=== PATIENT | male | born 1965 | race Asian ===

== ENCOUNTER 2024-01-30 14:29 | Outpatient (CLI) | payer MEDICAID | END 2024-01-30 23:59 | disposition home or self-care (01) | LOC: LAB 14:29 | PROVIDERS: ATTEND Internal Medicine | DX: C20 Malignant neoplasm of rectum (principal) | CPT/HCPCS: 36415; 82378 ==

== ENCOUNTER 2024-03-24 11:12 | Outpatient (CLI) | payer MEDICAID ==
[2024-03-24 11:44] LABS: BASOPHILS % (AUTO) 0.3 % (0-1); EOSINOPHILS % (AUTO) 0.3 % (0-6); HEMATOCRIT 42.7 % (42.0-52.0); HEMOGLOBIN 14.5 g/dl (14.0-17.9); LYMPHOCYTES # (AUTO) 0.2 X10'3 (1.1-4.8); MEAN CORPUSCULAR HEMOGLOBIN 33.9 PG (27.0-31.0); MEAN CORPUSCULAR HGB CONC 33.9 g/dL (33.0-36.5); MEAN PLATELET VOLUME 6.3 FL (7.4-10.4); MONOCYTES # (AUTO) 0.4 X10'3 (0-0.9); MONOCYTES % (AUTO) 9.3 % (2-12); NEUTROPHILS # (AUTO) 3.8 X10'3 (1.8-7.7); NEUTROPHILS % (AUTO) 86.1 % (42-75); PLATELET COUNT 265 X10'3 (140-440); RED BLOOD COUNT 4.27 X10'6 (4.70-6.10); RED CELL DISTRIBUTION WIDTH 16.2 % (11.5-14.5); WHITE BLOOD COUNT 4.4 X10'3 (4.5-11.0)
[2024-03-24 11:59] LABS: ALANINE AMINOTRANSFERASE 15 U/L (12-78); ALBUMIN 4.2 G/DL (3.4-5.0); ALKALINE PHOSPHATASE 76 IU/L (46-116); ANION GAP 5 (8-16); ASPARTATE AMINO TRANSFERASE 17 U/L (10-37); BILIRUBIN,TOTAL 0.6 MG/DL (0.1-1.0); BLOOD UREA NITROGEN 10 MG/DL (7-18); BUN/CREATININE RATIO 8.9 (10.0-20.0); CHLORIDE 104 MMOL/L (99-107); CREATININE 1.12 MG/DL (0.60-1.10); GLUCOSE 109 MG/DL (70-104); MAGNESIUM 1.9 MG/DL (1.5-2.4); POTASSIUM 4.7 MMOL/L (3.5-5.1); SODIUM 140 MMOL/L (135-145); TOTAL CARBON DIOXIDE 30.6 MMOL/L (24-32); TOTAL PROTEIN 8.5 G/DL (6.4-8.2); eGFR 67 ML/MIN
== END 2024-03-24 23:59 | disposition home or self-care (01) ==
LOC: LAB 11:12
PROVIDERS: ATTEND Internal Medicine
DX: C20 Malignant neoplasm of rectum (principal)
CPT/HCPCS: 36415; 80053; 83735; 85025

== ENCOUNTER 2024-05-19 10:06 | Outpatient (CLI) | payer MEDICAID ==
[2024-05-19 10:36] LABS: BASOPHILS % (AUTO) 0.3 % (0-1); EOSINOPHILS % (AUTO) 0.9 % (0-6); HEMATOCRIT 39.3 % (42.0-52.0); HEMOGLOBIN 13.6 g/dl (14.0-17.9); LYMPHOCYTES # (AUTO) 0.3 X10'3 (1.1-4.8); LYMPHOCYTES % (AUTO) 8.7 % (21-51); MEAN CORPUSCULAR HEMOGLOBIN 35.9 PG (27.0-31.0); MEAN CORPUSCULAR HGB CONC 34.6 g/dL (33.0-36.5); MEAN CORPUSCULAR VOLUME 103.8 FL (78-98); MEAN PLATELET VOLUME 6.8 FL (7.4-10.4); MONOCYTES # (AUTO) 0.3 X10'3 (0-0.9); MONOCYTES % (AUTO) 10.9 % (2-12); NEUTROPHILS # (AUTO) 2.5 X10'3 (1.8-7.7); NEUTROPHILS % (AUTO) 79.2 % (42-75); PLATELET COUNT 313 X10'3 (140-440); RED BLOOD COUNT 3.78 X10'6 (4.70-6.10); RED CELL DISTRIBUTION WIDTH 17.6 % (11.5-14.5); WHITE BLOOD COUNT 3.2 X10'3 (4.5-11.0)
[2024-05-19 10:50] LABS: ALANINE AMINOTRANSFERASE 16 U/L (12-78); ALBUMIN 3.8 G/DL (3.4-5.0); ALBUMIN/GLOBULIN RATIO 1.1 (1.1-1.5); ASPARTATE AMINO TRANSFERASE 13 U/L (10-37); BILIRUBIN,TOTAL 0.4 MG/DL (0.1-1.0); CALCIUM 8.9 MG/DL (8.5-10.1); TOTAL CARBON DIOXIDE 28.9 MMOL/L (24-32); TOTAL PROTEIN 7.4 G/DL (6.4-8.2)
[2024-05-19 10:52] LABS: ALKALINE PHOSPHATASE 77 IU/L (46-116); ANION GAP 6 (8-16); BLOOD UREA NITROGEN 13 MG/DL (7-18); BUN/CREATININE RATIO 14.1 (10.0-20.0); CHLORIDE 105 MMOL/L (99-107); CREATININE 0.92 MG/DL (0.60-1.10); GLUCOSE 110 MG/DL (70-104); POTASSIUM 4.4 MMOL/L (3.5-5.1); SODIUM 140 MMOL/L (135-145); eGFR 84 ML/MIN
== END 2024-05-19 23:59 | disposition home or self-care (01) ==
LOC: LAB 10:06
PROVIDERS: ATTEND Internal Medicine Hematology & Oncology
DX: C20 Malignant neoplasm of rectum (principal)
CPT/HCPCS: 36415; 80053; 82378; 85025

== ENCOUNTER 2024-10-01 10:29 | Outpatient (CLI) | payer MEDICAID ==
[2024-10-01 11:36] LABS: BASOPHILS % (AUTO) 0.5 % (0-1); EOSINOPHILS # (AUTO) 0.1 X10'3 (0-0.9); HEMOGLOBIN 13.5 g/dl (14.0-17.9); LYMPHOCYTES # (AUTO) 0.3 X10'3 (1.1-4.8); MEAN CORPUSCULAR HEMOGLOBIN 33.6 PG (27.0-31.0); MEAN CORPUSCULAR HGB CONC 33.8 g/dL (33.0-36.5); MEAN CORPUSCULAR VOLUME 99.6 FL (78-98); MEAN PLATELET VOLUME 6.6 FL (7.4-10.4); MONOCYTES # (AUTO) 0.3 X10'3 (0-0.9); MONOCYTES % (AUTO) 9.1 % (2-12); NEUTROPHILS # (AUTO) 2.6 X10'3 (1.8-7.7); NEUTROPHILS % (AUTO) 78.4 % (42-75); PLATELET COUNT 287 X10'3 (140-440); RED BLOOD COUNT 4.02 X10'6 (4.70-6.10); RED CELL DISTRIBUTION WIDTH 13.7 % (11.5-14.5); WHITE BLOOD COUNT 3.4 X10'3 (4.5-11.0)
[2024-10-01 11:48] LABS: ALANINE AMINOTRANSFERASE 18 U/L (12-78); ALBUMIN 4.1 G/DL (3.4-5.0); ALBUMIN/GLOBULIN RATIO 1.2 (1.1-1.5); ALKALINE PHOSPHATASE 84 IU/L (46-116); ANION GAP 7 (8-16); ASPARTATE AMINO TRANSFERASE 17 U/L (10-37); BILIRUBIN,TOTAL 0.5 MG/DL (0.1-1.0); BLOOD UREA NITROGEN 15 MG/DL (7-18); BUN/CREATININE RATIO 13.9 (10.0-20.0); CHLORIDE 100 MMOL/L (99-107); CREATININE 1.08 MG/DL (0.60-1.10); GLUCOSE 108 MG/DL (70-104); POTASSIUM 4.3 MMOL/L (3.5-5.1); SODIUM 137 MMOL/L (135-145); TOTAL CARBON DIOXIDE 30.2 MMOL/L (24-32); TOTAL PROTEIN 7.6 G/DL (6.4-8.2); eGFR 70 ML/MIN
[2024-10-01 11:59] LABS: HEMOGLOBIN A1C 5.9 % (4.5-6.2)
[2024-10-01 12:00] LABS: CHOL/HDL RATIO 2.5 (0.00-4.99); CHOLESTEROL 128 MG/DL (0-200); FREE T4 (FREE THYROXINE) 1.02 NG/DL (0.73-1.40); HDL CHOLESTEROL 52 MG/DL (35-60); LDL CHOLESTEROL 58 MG/DL (50-100); MAGNESIUM 1.8 MG/DL (1.5-2.4); THYROID STIMULATING HORMONE 1.25 ulU/ml (0.34-4.50); TRIGLYCERIDES 73 MG/DL (20-135)
[2024-10-02 09:54] LABS: OCCULT BLOOD STOOL NEGATIVE (Neg)
[2024-10-02 11:16] LABS: FOLATE SERUM(FOLIC) 16.5 ng/mL (>3.0); HBSAG SCREEN Negative (Negative); HEP A AB, IGM Negative (Negative); HEP B CORE AB, IGM Negative (Negative); PROSTATE SPECIFIC AG, SERUM 0.5 ng/mL (0.0-4.0); PSA, FREE 0.05 ng/mL
[2024-10-04 11:38] LABS: HEPATITIS C VIRUS ANTIBODY Reactive (Non Reactive)
== END 2024-10-01 23:59 | disposition home or self-care (01) ==
LOC: RAD 10:29
PROVIDERS: ATTEND Physician Assistant
DX: C20 Malignant neoplasm of rectum (principal); Z98.890 Other specified postprocedural states
CPT/HCPCS: 36415; 80053; 80061; 80074; 82272; 82306; 82378; 82607; 82746; 83036; 83735; 84153; 84154; 84439; 84443; 85025; 86592; 87045; 87046; 87177; 87209; 87389

== ENCOUNTER 2024-10-06 14:31 | Emergency (ER) | payer MEDICAID ==
[~2024-10-06] VITALS: Ht 185.4 cm; Wt 55.6 kg
[2024-10-06 14:40] VITALS: BP 116/85; PULSE 80; TEMP 98.5; O2SAT 99
--- NOTE | 2024-10-06 14:49 | Physician Documentation ---
History of Present Illness ~ Chief Complaint: Abdominal Pain Stated Complaint: ABD PAIN Time Seen by MD: 15:12 HPI 58-year-old male who presents to the emergency department follow up with the 2nd time in two weeks with complaints of diarrhea. Reports that he streaking from the stream your other day and begin having diarrhea shortly following. Denies rash denies migratory fevers denies arthralgias. Has a colostomy and states that his stools have been hard to manage. He suspects he has not infectious diarrhea etiology. Medication Reconciliation Allergies: Coded Allergies: No Known Allergies (Unverified , 10/06/24) Scheduled Azithromycin (Zithromax), 2 TAB PO DAILY Metronidazole* (Flagyl*), 1 TAB PO Q12H Review of Systems All Other Systems at this time: Reviewed and Negative Gastrointestinal: Reports: diarrhea Physical Exam Vital Signs: RN Vital Signs have been reviewed: Yes, Temperature: 98.5, Source: Temporal, Heart Rate: 80, Respiratory Rate: 15, BP: 116/85, Pulse Oximetry: 99, Weight: 55.650 General Appearance: alert, WD/WN EENT: PERRL/EOMI Neck: normal inspection Respiratory: lungs clear Gastrointestinal: normal palpation Gastrointestinal Colostomy bag Back: normal inspection Extremities: normal range of motion Neurologic: oriented x4 Psychiatric: normal mood/affect Skin: normal color Progress Results/Orders Results/Orders Vital Signs 10/06/24 14:40 Temp 98.5 Pulse 80 Resp 15 B/P (MAP) 116/85 Pulse Ox 99 Laboratory Tests Test 10/06/24 15:05 White Blood Count 3.9 L Red Blood Count 4.12 L Hemoglobin 14.0 Hematocrit 40.9 L Mean Corpuscular Volume 99.4 H Mean Corpuscular Hemoglobin 34.0 H Mean Corpuscular Hemoglobin Concent 34.2 Red Cell Distribution Width 13.7 Platelet Count 266 Mean Platelet Volume 7.2 L Neutrophils (%) (Auto) 75.2 H Lymphocytes (%) (Auto) 14.4 L Monocytes (%) (Auto) 9.0 Eosinophils (%) (Auto) 0.9 Basophils (%) (Auto) 0.5 Neutrophils # (Auto) 2.9 Lymphocytes # (Auto) 0.6 L Monocytes # (Auto) 0.3 Eosinophils # (Auto) 0.0 Basophils # (Auto) 0.0 CBC Comment Sodium Level 138 Potassium Level 4.2 Chloride Level 101 Carbon Dioxide Level 29.2 Anion Gap 8 Blood Urea Nitrogen 10 Creatinine 1.07 Estimated GFR/1.73 m2 71 BUN/Creatinine Ratio 9.3 L Glucose Level 112 H Calcium Level 9.2 Total Bilirubin 0.5 Aspartate Amino Transf (AST/SGOT) 15 Alanine Aminotransferase (ALT/SGPT) 17 Alkaline Phosphatase 88 Total Protein 7.6 Albumin 4.0 Globulin 3.6 Albumin/Globulin Ratio 1.1 Lipase 18 Chemistry Comments Medical Decision Making Additional Comments Examination history warrants screening of urine functions and white blood cell counts. Both reassuring. Shared decision-making to cover patient with Flagyl and azithromycin for parasitic and bacterial water borne etiologies. No current vomiting at this time. He will get a test of cure stool specimen in 7-10 days if symptoms continue. Stable for discharge. Departure Disposition: 01 HOME / SELF CARE / HOMELESS Impression: Primary Impression: Infectious diarrhea Condition: Improved Discharge Instructions: Diarrhea, Adult, [id number] Additional Instructions: Please begin both medications as directed. Return to the emergency department or see your primary care physician in 5-7 days for test of cure if still having diarrhea. Referrals: NO PRIMARY CARE PROVIDER (PCP) Prescriptions Azithromycin (Zithromax) 250 Mg Tablet 2 TAB PO DAILY for 5 Days, #10 TAB azithromycin z pack as directed in packaging Prov: BLADIMIR MUNIZ 10/06/24 Metronidazole* (Flagyl*) 500 Mg Tablet 1 TAB PO Q12H for 7 Days, #14 TAB Prov: BLADIMIR MUNIZ 10/06/24 Education Educated: Patient Educated regarding: diagnosis Additional Comment Medical Screen Exam History: This is 58-year-old male history of colostomy who presents with concern for left-sided abdominal discomfort and change in stool color and consistency following drinking out of a [place] approximately one-week prior, patient reports no blood in stool and no vomiting. Reports no fevers. Exam: VITALS: Reviewed and as above. GENERAL: Alert, nontoxic appearing, no apparent distress. RESPIRATORY: No increased work of breathing, no respiratory distress, speaking in full clear sentences MSE performed in triage and patient returned to ED lobby by nursing staff The note accurately reflects work and decisions made by me.DEWEY King 10/06/24 14:49 Signature Scribe Signature: . Attestation: . FAMILIA MEHTA Oct 06, 2024 14:49 BLADIMIR MUNIZ Oct 06, 2024 15:56
[2024-10-06 15:41] LABS: BASOPHILS % (AUTO) 0.5 % (0-1); EOSINOPHILS % (AUTO) 0.9 % (0-6); HEMATOCRIT 40.9 % (42.0-52.0); LYMPHOCYTES # (AUTO) 0.6 X10'3 (1.1-4.8); LYMPHOCYTES % (AUTO) 14.4 % (21-51); MEAN CORPUSCULAR HGB CONC 34.2 g/dL (33.0-36.5); MEAN CORPUSCULAR VOLUME 99.4 FL (78-98); MEAN PLATELET VOLUME 7.2 FL (7.4-10.4); MONOCYTES # (AUTO) 0.3 X10'3 (0-0.9); NEUTROPHILS # (AUTO) 2.9 X10'3 (1.8-7.7); NEUTROPHILS % (AUTO) 75.2 % (42-75); PLATELET COUNT 266 X10'3 (140-440); RED BLOOD COUNT 4.12 X10'6 (4.70-6.10); RED CELL DISTRIBUTION WIDTH 13.7 % (11.5-14.5); WHITE BLOOD COUNT 3.9 X10'3 (4.5-11.0)
[2024-10-06 15:45] VITALS: RESP 18
[2024-10-06] MEDS ORDERED: METR-159 PO (15:55)
[2024-10-06] MEDS ORDERED: AZIT-164 PO (15:56)
[2024-10-06 16:02] LABS: ALANINE AMINOTRANSFERASE 17 U/L (12-78); ALBUMIN/GLOBULIN RATIO 1.1 (1.1-1.5); ALKALINE PHOSPHATASE 88 IU/L (46-116); ANION GAP 8 (8-16); ASPARTATE AMINO TRANSFERASE 15 U/L (10-37); BILIRUBIN,TOTAL 0.5 MG/DL (0.1-1.0); BLOOD UREA NITROGEN 10 MG/DL (7-18); BUN/CREATININE RATIO 9.3 (10.0-20.0); CALCIUM 9.2 MG/DL (8.5-10.1); CHLORIDE 101 MMOL/L (99-107); CREATININE 1.07 MG/DL (0.60-1.10); GLUCOSE 112 MG/DL (70-104); LIPASE 18 U/L (16-77); POTASSIUM 4.2 MMOL/L (3.5-5.1); SODIUM 138 MMOL/L (135-145); TOTAL CARBON DIOXIDE 29.2 MMOL/L (24-32); TOTAL PROTEIN 7.6 G/DL (6.4-8.2); eCRCL 59 ML/MIN; eGFR 71 ML/MIN
== END 2024-10-06 16:50 | disposition home or self-care (01) ==
LOC: ER 14:31
DX: A09 Infectious gastroenteritis and colitis, unspecified (principal); Z93.3 Colostomy status
CPT/HCPCS: 36415; 80053; 83690; 85025; 99283

== ENCOUNTER 2024-11-05 11:49 | Emergency (ER) | payer MEDICAID ==
[~2024-11-05] VITALS: Ht 185.4 cm; Wt 70.3 kg
[2024-11-05 12:39] LABS: MEAN PLATELET VOLUME 6.7 FL (7.4-10.4); RED CELL DISTRIBUTION WIDTH 14.5 % (11.5-14.5)
[2024-11-05 12:56] LABS: CREATININE 0.99 MG/DL (0.60-1.10); TOTAL CARBON DIOXIDE 25.5 MMOL/L (24-32); eCRCL 80 ML/MIN; eGFR 77 ML/MIN
[2024-11-05 13:21] LABS: LYMPHOCYTES % (MANUAL) 12.0 % (21-51); MONOCYTES % (MANUAL) 8.0 % (2-12); NEUTROPHILS % (MANUAL) 80.0 % (42-75); PLATELET ESTIMATE NORMAL
--- NOTE | 2024-11-05 14:36 | Physician Documentation ---
History of Present Illness Chief Complaint: Abdominal Pain Stated Complaint: STOMACH BLOCKAGE Time Seen by MD: 13:17 OK to notify your PCP?: Yes Source: patient Mode of Arrival: POV Exam Limitations: no limitations HPI Chief Complaint: Abdominal pain Caveat: None Independent Historians: None History of Present Illness: Patient is a 59-year-old man who comes in complaining of abdominal pain that began four days ago. Pain got much worse this morning with a abdominal cramps and dry heaves this morning. Patient states that he has had little to no output from his colostomy. Patient states that the stool is sick but not hard. No fever. Patient's pain is currently 4/10. Patient denies any other associated symptoms. Patient denies any alleviating or exacerbating factors. Review of systems: All systems were reviewed and are negative except for what is indicated in the history of present illness. Past Medical History: Colon cancer Past Surgical History: Partial colectomy secondary to colon cancer in June 2022. Colostomy Social History: No tobacco use, no alcohol use, no drug use Medications: Reviewed as documented Nursing Notes Allergies: Reviewed as documented in Nursing Notes Medication Reconciliation Allergies: Coded Allergies: No Known Allergies (Unverified , 10/06/24) Review of Systems All Other Systems at this time: Reviewed and Negative ROS PATIENT DENIES ANY OTHER ACUTE SYMPTOMS OTHER THAN ABOVE. ALL OTHER SYSTEMS ARE NEGATIVE Physical Exam Vital Signs: RN Vital Signs have been reviewed: Yes, Temperature: 98.4, Heart Rate: 74, Respiratory Rate: 13, BP: 110/70, Pulse Oximetry: 97, Weight: 70.300 Oxygen Flow Rate: 0 Physical Exam General Appearance: No distress HEENT: Normal OP, moist oral mucosa, PERRL, EOMI Neck: supple, normal ROM, trachea midline Pulmonary: No respiratory distress, CTA, BS equal Cardiac: RRR, no murmur, rub or gallop, GI: SOFT, MILD DISTENTION, TYMPANITIC TO PERCUSSION, MINIMAL TO NO TENDERNESS, normal bowel sounds, no guarding, no rebound Extremities: normal ROM, no swelling, non-tender Skin: intact, dry, warm, no rashes Neuro: AAOx3, speech is clear, no focal motor weakness Psych: normal affect, good eye contact, no apparent hallucination, normal speech Progress Results/Orders Results/Orders Orders - UGO FREY MD Ct Abdomen Pelvis (11/05/24 14:29) Completed Orders - UGO FREY MD Cbc/Diff (11/05/24 12:02) CMP (11/05/24 12:02) Man Diff (11/05/24 12:15) Ct Abdomen Pelvis (11/05/24 14:29) Vital Signs 11/05/24 11/05/24 11/05/24 11/05/24 12:00 12:54 12:58 13:59 Temp 98.4 Pulse 77 68 74 Resp 18 14 13 B/P (MAP) 115/87 116/80 (92) 110/70 (83) Pulse Ox 98 96 97 O2 Flow Rate 0 0 0 Laboratory Tests Test 11/05/24 12:15 White Blood Count 2.7 L Red Blood Count 3.83 L Hemoglobin 13.2 L Hematocrit 38.3 L Mean Corpuscular Volume 100.1 H Mean Corpuscular Hemoglobin 34.4 H Mean Corpuscular Hemoglobin Concent 34.4 Red Cell Distribution Width 14.5 Platelet Count 252 Mean Platelet Volume 6.7 L Neutrophils (%) (Auto) 80.1 H Lymphocytes (%) (Auto) 10.7 L Monocytes (%) (Auto) 8.0 Eosinophils (%) (Auto) 0.6 Basophils (%) (Auto) 0.6 Neutrophils # (Auto) 2.1 Lymphocytes # (Auto) 0.3 L Monocytes # (Auto) 0.2 Eosinophils # (Auto) 0.0 Basophils # (Auto) 0.0 CBC Comment Differential Total Cells Counted 100 Neutrophils % (Manual) 80.0 H Lymphocytes % (Manual) 12.0 L Monocytes % (Manual) 8.0 Platelet Estimate Normal Red Blood Cell Morphology Perf Basophilic Stippling Macrocytosis 1+ Sodium Level 139 Potassium Level 4.0 Chloride Level 104 Carbon Dioxide Level 25.5 Anion Gap 10 Blood Urea Nitrogen 9 Creatinine 0.99 Estimated GFR/1.73 m2 77 BUN/Creatinine Ratio 9.1 L Glucose Level 100 Calcium Level 8.8 Total Bilirubin 0.6 Aspartate Amino Transf (AST/SGOT) 17 Alanine Aminotransferase (ALT/SGPT) 15 Alkaline Phosphatase 77 Total Protein 7.3 Albumin 4.0 Globulin 3.3 Albumin/Globulin Ratio 1.2 Chemistry Comments Medical Decision Making Findings Differential diagnosis includes but is not limited to: Small-bowel obstruction, constipation Laboratory data independent interpretation: CBC: Mild anemia with a hemoglobin of 11.6 and hematocrit 33.8 CMP: Mild elevation in BUN creatinine of 23 and 1.06 respectively. Otherwise unremarkable. Lactic acid: 1.9 1st troponin: 4 2nd troponin: Emergency department course/medical decision-making: Patient presents with some abdominal pain and cramps and decreased output in his colostomy bag. CT scan does not reveal any infection or small-bowel obstruct ion. Patient will be given instructions to take a laxative. Patient is afebrile and hemodynamically stable. Patient's blood work is unremarkable. No medical or surgical emergency has been identified. Test results treatment plan and all of the above reviewed with the patient. Patient is stable for discharge. COUPLE OF DAYS AGO THE PATIENT ATE GRAPES AND RAISINS. HE THINKS THIS MAY HAVE BEEN THE CAUSE. PATIENT STATES THAT HE HAS HAD CONSTIPATION BEFORE BUT IT USUALLY ONLY LASTS A COUPLE OF DAYS. PATIENT TOOK A SENOKOT YESTERDAY WITH NO RELIEF. HE WILL TAKE ANOTHER DOSE OF SENOKOT TONIGHT ALONG WITH SOME MIRALAX. Departure Time of Disposition: 15:38 Disposition: HOME / SELF CARE / HOMELESS Impression: Primary Impression: Abdominal pain Qualified Codes: R10.84 - Generalized abdominal pain Additional Impression: Decreased colostomy output Condition: Stable Discharge Instructions: Abdominal Pain (Nonspecific) Additional Instructions: TRY USING A DOSE OF SENOKOT AND MIRALAX TONIGHT. THERE WAS NO EVIDENCE OF BOWEL OBSTRUCTION. IF YOUR SYMPTOMS WORSEN OR IF YOU DEVELOP A FEVER OR VOMITING RETURNED TO THE ER FOR REPEAT EVALUATION. Education Educated: Patient Educated regarding: diagnosis, treatment Signature Scribe Signature: No scribe Attestation: No scribe UGO FREY MD Nov 05, 2024 14:36
--- NOTE | 2024-11-05 15:02 | RADIOLOGY REPORT ---
CT CT ABDOMEN PELVIS INDICATION: Abdominal Pain EXAM DATE: 11/05/2024 02:24 PM COMPARISON: None RADIATION DOSE: CTDIvol: 11 mGy, DLP: 536 mGy*cm PROCEDURE: Helical CT images were obtained of the abdomen and pelvis without IV contrast Sagittal and coronal reconstructions are provided. ORAL CONTRAST: None. ADDITIONAL IMAGES / REFORMATS: None All C T scans at this medical facility are performed using dose modulation techniques as appropriate to a p erformed exam including the following: Automated exposure control was utilized; adjustment of the MA and/or KV according to patient size; and use of iterative reconstruction technique. FINDINGS: LUNG BASE: Bibasilar atelectasis. LIVER: 1.7 cm hypodense cystic lesion in the right hepatic lobe incompletely characterized. GALLBLADDER AND BILIARY TREE: No calcified gallstones. Normal caliber wall. No intra- or extrahepatic biliary ductal dilation. PANCREAS: Normal. SPLEEN: Normal. BOWEL: Left lower quadrant colostomy appears intact. No small bowel dilation seen. ADRENALS: Normal. KIDNEYS AND URETER: Normal. BLADDER: Normal. REPRODUCTIVE ORGANS: Normal. LYMPH NODES:No lymphadenopathy. PERITONEUM: No ascites or free air. No other fluid collection. VESSELS: Scattered atherosclerotic calcifications are noted. RETROPERITONEUM: Normal. ABDOMINAL WALL: Normal. BONES: Scattered osseous degenerative changes are noted. IMPRESSION: No acute intraabdominal abnormality. Post surgical changes from a left lower quadrant colostomy. No small bowel dilation. 1.7 cm hypodense cystic lesion in the right hepatic lobe incompletely characterized.
[2024-11-05] MEDS: normal saline 1000ml 1,000 ML IV ONE (15:08)
[2024-11-05] MEDS: normal saline 1000ML IV soln IVB ONE (15:31)
[2024-11-05 16:31] VITALS: BP 134/87; PULSE 66; RESP 17; TEMP 98.4; O2SAT 96
== END 2024-11-05 16:30 | disposition home or self-care (01) ==
LOC: ER 11:50
DX: R10.9 Unspecified abdominal pain (principal); Z43.3 Encounter for attention to colostomy; Z85.038 Personal history of other malignant neoplasm of large intestine
CPT/HCPCS: 36415; 74176; 80053; 85025; 96360; 99285; J7030; 85007; 96361

== ENCOUNTER 2024-11-30 17:20 | Emergency (ER) | payer MEDICAID ==
[~2024-11-30] VITALS: Ht 185.4 cm; Wt 69.5 kg
[2024-11-30 20:02] LABS: MEAN PLATELET VOLUME 6.9 FL (7.4-10.4); RED CELL DISTRIBUTION WIDTH 14.4 % (11.5-14.5)
[2024-11-30 20:14] LABS: LEUKOCYTE ESTERASE ,URINE NEGATIVE (Neg); NITRITES, URINE NEGATIVE (Neg); OCCULT BLOOD,URINE NEGATIVE (Neg)
[2024-11-30 20:19] LABS: UA COLLECTION TYPE NON-SPECIFIED
[2024-11-30 20:33] LABS: CREATININE 0.94 MG/DL (0.60-1.10); TOTAL CARBON DIOXIDE 28.0 MMOL/L (24-32); eCRCL 83 ML/MIN; eGFR 82 ML/MIN
--- NOTE | 2024-11-30 20:43 | Physician Documentation ---
History of Present Illness Chief Complaint: Abdominal Pain Stated Complaint: ABD PAIN Time Seen by MD: 20:38 OK to notify your PCP?: Yes Primary Medical Doctor: avelina fuentes Source: patient, RN/MD, RN notes reviewed, old records Mode of Arrival: POV Exam Limitations: no limitations HPI Bed 4 This patient is a 59-year-old male who presents to the ED with chief complaint of abdominal pain. Patient reports that he has had worsening abdominal pain as well as nausea for the past seven days. He has not had any vomiting. Patient states that he has noticed some distention in his abdomen today however. He also has some pain around his stoma was placed due to his history of colorectal cancer. The stoma was placed last June and has not had any problems until recently. Patient denies any associated symptoms at this time. Patient denies any alleviating or exacerbating factors. Medication Reconciliation Allergies: Coded Allergies: No Known Allergies (Unverified , 11/30/24) Past Medical History Past Medical History: *CANCER* (Colon cancer) Past Surgical History: other Smoking Status: Never smoker Alcohol Use: None Drug Use: none Review of Systems All Other Systems at this time: Reviewed and Negative Physical Exam Vital Signs: RN Vital Signs have been reviewed: Yes, Temperature: 98.9, Source: Oral, Heart Rate: 69, Respiratory Rate: 10, BP: 101/76, Pulse Oximetry: 96, Weight: 69.450 Oxygen Flow Rate: 0 Physical Exam General: The patient is well developed, well nourished, nontoxic appearing and is in no acute distress. Skin: [place], warm and dry with no rashes. HEENT: Head was normocephalic and atraumatic. Eyes - pupils equal, round, reactive to light and accommodation. Extraocular movements were intact. Conjunctivae were nonicteric. Ears - bilateral tympanic membranes were normal. The mouth and oropharynx were clear with moist mucous membranes. There were no pharyngeal exudates or erythema. Neck: Supple and nontender. There was no jugular venous distention, lymphadenopathy, thyromegaly or masses. Chest: Clear to auscultation bilaterally without wheezes, rales or rhonchi. No accessory muscle use. No dullness to percussion. Heart: Rate regular and rhythmic. S1, S2. No murmurs. Palpation of the chest wall was normal. No rubs or thrills. Abdomen: Localized center's palpation around the stoma. Otherwise abdomen is soft, nontender and nondistended. Increased bowel sounds. No guarding or rebound. No hepatosplenomegaly or palpable masses. Extremities: No cyanosis, clubbing or edema. The patient moves all extremities. Pulses were equal and symmetric. Neurologic: Cranial nerves II-XII were intact. Sensation was intact to light touch throughout. Motor strength was 5/5 in all four extremities. Deep tendon reflexes were intact in both upper and lower extremities. Psychologic: The patient was oriented to person, place and time. The patient demonstrated appropriate judgement and insight. Progress Results/Orders Reviewed/noted all lab results: Yes Results/Orders Orders - SMITH SUAREZ MD Ethanol (11/30/24 20:42) MG (11/30/24 20:42) Completed Orders - SMITH SUAREZ MD Urinalysis, Cult If Indicated (11/30/24 19:41) Cbc/Diff (11/30/24 19:41) Lipase (11/30/24 19:41) CMP (11/30/24 19:41) Vital Signs 11/30/24 11/30/24 11/30/24 11/30/24 17:29 17:44 17:49 18:46 Temp 98.9 98.9 Pulse 87 78 69 Resp 15 18 18 10 B/P (MAP) 105/80 112/84 (93) 101/76 (84) Pulse Ox 99 99 96 O2 Flow Rate 0 0 0 Laboratory Tests Test 11/30/24 19:52 11/30/24 19:59 White Blood Count 2.8 L Red Blood Count 3.73 L Hemoglobin 12.9 L Hematocrit 36.9 L Mean Corpuscular Volume 98.9 H Mean Corpuscular Hemoglobin 34.7 H Mean Corpuscular Hemoglobin Concent 35.1 Red Cell Distribution Width 14.4 Platelet Count 230 Mean Platelet Volume 6.9 L Neutrophils (%) (Auto) 73.1 Lymphocytes (%) (Auto) 12.4 L Monocytes (%) (Auto) 12.7 H Eosinophils (%) (Auto) 1.3 Basophils (%) (Auto) 0.5 Neutrophils # (Auto) 2.1 Lymphocytes # (Auto) 0.4 L Monocytes # (Auto) 0.4 Eosinophils # (Auto) 0.0 Basophils # (Auto) 0.0 CBC Comment Sodium Level 137 Potassium Level 4.0 Chloride Level 103 Carbon Dioxide Level 28.0 Anion Gap 6 L Blood Urea Nitrogen 10 Creatinine 0.94 Estimated GFR/1.73 m2 82 BUN/Creatinine Ratio 10.6 Glucose Level 100 Calcium Level 8.6 Total Bilirubin 0.4 Aspartate Amino Transf (AST/SGOT) 13 Alanine Aminotransferase (ALT/SGPT) 20 Alkaline Phosphatase 75 Total Protein 6.6 Albumin 3.5 Globulin 3.1 Albumin/Globulin Ratio 1.1 Lipase 23 Chemistry Comments Urine Specimen Description Non-specified Urine Color Yellow Urine Clarity Clear Urine pH 6.5 Urine Specific [place] <=1.005 Urine Protein Negative Urine Glucose (UA) Negative Urine Ketones Negative Urine Occult Blood Negative Urine Nitrite Negative Urine Bilirubin Negative Urine Urobilinogen 0.2 Urine Leukocyte Esterase Negative Urine Culture Indicated Not ind Volume Urine Centrifuged 10 ml Urine Comment EKG/XRAY/CT/US/VASC/MRI CT : Interpreted By: radiologist, both CT: abdomen/pelvis With Contrast?: No Impression [place] [id number] CAT SCAN Patient: UGO MCDONALD Medical Record: [id number] [facility] : 1965, Age: 59 Sex: Male Location: ER Patient Status: REG ER Service Date/Time: 11/30/242122 Ordering Physician: SMITH SUAREZ MD Exam: CT ABDOMEN PELVIS Exam: CT CT ABDOMEN PELVIS W/ IV CONTRAST History: ABD PAIN Comparison Study: CT CT ABDOMEN PELVIS on DOS: 11/05/24 TECHNIQUE: A digital foot drill operator image was obtained. During the uneventful, intr avenous administration of contrast material, multislice data acquisition was obtained through the abdomen and pelvis. The data set was subsequently reconstructed into multiplanar reformats. RADIATION DOSE: CTDI vol 10.14 mGy. DLP 543.92 mGy.cm Findings: Liver: 1.8 cm right hepatic lesion demonstrating peripheral enhancement, possibly reflecting a hemangioma. Spleen: Unremarkable. Pancreas: Unremarkable. Gallbladder: Contracted in appearance. Adrenals: Unremarkable Kidneys: Left renal cyst. No hydronephrosis. Pelvic Viscera: Unremarkable. Vasculature: Moderate aortoiliac atherosclerosis. Retroperitoneum: Shotty retroperitoneal nodes. Nonspecific mild presacral stranding. Bowel: Prior partial colectomy with left lower quadrant colostomy. Colonic diverticulosis. Nonspecific mildly prominent loop of small bowel within the left upper quadrant. Musculoskeletal: Unremarkable. Soft tissues: Unremarkable Lungs: Basilar atelectasis/scarring. Impression: 1. Nonspecific mildly prominent loop of small bowel within the left upper quadrant, possibly reflecting a mild enteritis. 2. 1.8 cm right hepatic lesion with peripheral enhancement, likely a hemangioma, which may be confirmed with a nonemergent MRI of the abdomen as clinically indicated. 3. Additional findings as detailed. Electronically Signed by:JAKE SANTAMARIA MD Date & Time: 11/30/242218 Dictated by: JAKE SANTAMARIA MD Dictation date and time: 11/30/242218 Primary Care Provider: NO PRIMARY CARE PROVIDER cc: SMITH SUAREZ MD ~ Imaging reviewed by ED MD Dr. Suarez who agrees with findings. Departure Time of Disposition: 23:26 Disposition: 01 HOME / SELF CARE / HOMELESS Impression: Primary Impression: Abdominal pain Qualified Codes: R10.84 - Generalized abdominal pain Additional Impression: Enteritis Condition: Stable Discharge Instructions: Abdominal Pain, Adult Additional Instructions: Follow up with your colorectal surgeon. Return to ER for new or worsening symptoms. Take medications as prescribed. Referrals: NO PRIMARY CARE PROVIDER (PCP) Education Educated: Patient Educated regarding: diagnosis, treatment, need for follow up Signature Scribe Signature: Scribed for Smith Suarez MD by Iona Andrews. 11/30/24 21:54 Attestation: The note accurately reflects work and decisions made by me.Smith Suarez MD 11/30/24 20:43 SMITH SUAREZ MD Nov 30, 2024 20:43
[2024-11-30 21:22] LABS: ETHANOL < 10 MG/DL (<10)
[2024-11-30] MEDS ORDERED: diatr meglu/diatrizoate 30ml oral sol.-(3 dose) bottle ONE (21:39)
--- NOTE | 2024-11-30 22:21 | RADIOLOGY REPORT ---
Exam: CT CT ABDOMEN PELVIS W/ IV CONTRAST History: ABD PAIN Comparison Study: CT CT ABDOMEN PELVIS on DOS: 11/05/24 TECHNIQUE: A digital lead manufacturing engineer image was obtained. During the uneventful, intravenous administration of c ontrast material, multislice data acquisition was obtained through the abdomen and pelvis. The data s et was subsequently reconstructed into multiplanar reformats. RADIATION DOSE: CTDI vol 10.14 mGy. DLP 543.92 mGy.cm Findings: Liver: 1.8 cm right hepatic lesion demonstrating peripheral enhancement, possibly reflecting a rafael ioma. Spleen: Unremarkable. Pancreas: Unremarkable. Gallbladder: Contracted in appearance. Adrenals: Unremarkable Kidneys: Left renal cyst. No hydronephrosis. Pelvic Viscera: Unremarkable. Vasculature: Moderate aortoiliac atherosclerosis. Retroperitoneum: Shotty retroperitoneal nodes. Nonspecific mild presacral stranding. Bowel: Prior partial colectomy with left lower quadrant colostomy. Colonic diverticulosis. Nonspecifi c mildly prominent loop of small bowel within the left upper quadrant. Musculoskeletal: Unremarkable. Soft tissues: Unremarkable Lungs: Basilar atelectasis/scarring. Impression: 1. Nonspecific mildly prominent loop of small bowel within the left upper quadrant, possibly reflecti ng a mild enteritis. 2. 1.8 cm right hepatic lesion with peripheral enhancement, likely a hemangioma, which may be confir med with a nonemergent MRI of the abdomen as clinically indicated. 3. Additional findings as detailed.
[2024-11-30] MEDS ORDERED: METR-159 PO (23:26)
[2024-12-01 01:08] VITALS: BP 133/95; PULSE 77; RESP 20; TEMP 98; O2SAT 97
== END 2024-12-01 01:12 | disposition home or self-care (01) ==
LOC: ER 17:21
DX: K52.9 Noninfective gastroenteritis and colitis, unspecified (principal); R11.0 Nausea
CPT/HCPCS: 36415; 74177; 80053; 80320; 81003; 83690; 83735; 85025; 99285; Q9963

== ENCOUNTER 2025-01-19 11:38 | Emergency (ER) | payer MEDICAID ==
[~2025-01-19] VITALS: Ht 182.9 cm; Wt 67.5 kg
[2025-01-19 11:40] VITALS: TEMP 97.4
--- NOTE | 2025-01-19 12:03 | Physician Documentation ---
History of Present Illness Chief Complaint: Abdominal Pain Stated Complaint: ABD PAIN Time Seen by MD: 11:49 Primary Medical Doctor: avelina fuentes Mode of Arrival: POV HPI 59-year-old male, with a colostomy, presenting with decreased colostomy output for 3 days. He tells me that for the past 3 days he has not had any output from his colostomy. He tells me that he has had some intermittent pain and nausea although currently he is not having pain. He has been taking MiraLax for 3 days with no improvement. He has been eating including eating things fiber. He is concerned that he has an obstruction. No fevers. No other new or different symptoms. Medication Reconciliation Allergies: Coded Allergies: No Known Allergies (Unverified , 11/30/24) Past Medical History Past Medical History: *CANCER* Past Surgical History: other Alcohol Use: None Drug Use: none Review of Systems Constitutional: Denies: fever Gastrointestinal: Reports: abdominal pain, nausea, constipated; Denies: vomiting Physical Exam Vital Signs: Temperature: 97.4, Heart Rate: 82, Respiratory Rate: 16, BP: 142/97, Pulse Oximetry: 99, Weight: 67.500 Oxygen Flow Rate: 0 Physical Exam General: This is a pleasant middle-aged man, sitting calmly in bed HEENT: Atraumatic, oropharynx is moist Heart: Regular rate, normal-appearing peripheral perfusion Lungs: normal work of breathing, normal oxygen saturation on room air Abdomen: Soft, nondistended. Colostomy in place in the central abdomen. No output in the bag. No significant tenderness on palpation of the abdomen including around the bag, no rebound or guarding Neuro: Alert and oriented Psychiatric: Calm and cooperative with exam Progress Results/Orders Results/Orders Orders - BLADIMIR THURSTON MD Urinalysis, Cult If Indicated (01/19/25 11:44) Cbc/Diff (01/19/25 11:44) BMP (01/19/25 11:44) Vital Signs 01/19/25 01/19/25 11:40 11:53 Temp 97.4 Pulse 82 Resp 16 B/P (MAP) 142/97 Pulse Ox 99 O2 Flow Rate 0 EKG/XRAY/CT/US/VASC/MRI CT : Impression I personally interpreted the CT scan, and this shows no small-bowel obstruction Medical Decision Making Additional Comments Differential includes constipation, bowel obstruction, other complication of colostomy, dehydration, electrolyte derangement Assessment The patient presents with no output from his ostomy for 3 days. On my exam he is not having any tenderness or other significant findings. Plan will be for labs and a CT scan to evaluate for obstruction or other complication. Labs are unremarkable, no acute abnormality. CT scan does not show signs consistent with an obstruction. On repeat evaluation he continues to have no significant abdominal pain. He likely is just constipated. He will be di scharged with symptomatic treatment for this, with strict return precautions if he does develop worsening symptoms to suggest a true obstruction. Departure Time of Disposition: 14:44 Disposition: 01 HOME / SELF CARE / HOMELESS Impression: Primary Impression: Constipation Condition: Stable Discharge Instructions: Constipation, Adult Referrals: NO PRIMARY CARE PROVIDER (PCP) Education Educated: Patient Educated regarding: diagnosis, treatment, need for follow up Signature Scribe Signature: [email or web address] Attestation: BLADIMIR Peña MD Jan 19, 2025 12:03
[2025-01-19] MEDS ORDERED: iohexol 300mg/ml 100ml inj. ONE (12:27)
[2025-01-19 12:53] LABS: MEAN PLATELET VOLUME 6.8 FL (7.4-10.4); RED CELL DISTRIBUTION WIDTH 13.5 % (11.5-14.5)
--- NOTE | 2025-01-19 12:56 | RADIOLOGY REPORT ---
CT CT ABDOMEN PELVIS W/ IV CONTRAST INDICATION: No output from ostomy for 3 days, abdominal pain and nausea EXAM DATE: 01/19/2025 12:27 PM COMPARISON: CT CT ABDOMEN PELVIS W/ IV CONTRAST on DOS: 11/30/24, CT CT ABDOMEN PELVIS on DOS: 11/05/24 RADIATION DOSE: CTDIvol: 9 mGy, DLP: 449 mGy*cm PROCEDURE: Helical CT images were obtained of the abdomen and pelvis with IV contrast Sagittal and coronal reconstructions are provided. ORAL CONTRAST: None. ADDITIONAL IMAGES / REFORMATS: None All CT scans at this medical facility are performed using dose modulation techniques as appropriate to a performed exam including the following: Automated exposure control was utilized; adjustment of the MA and/or KV according to patient size; and use of iterative reconstruction technique. FINDINGS: LUNG BASE: Normal. LIVER: Stable 1.8 cm right hepatic hemangioma. GALLBLADDER AND BILIARY TREE: No calcified gallstones. Normal caliber wall. No intra- or extrahepatic biliary ductal dilation. PANCREAS: Normal. SPLEEN: Normal. BOWEL: Post surgical changes from bowel resection with a LLQ end colostomy. Moderate to severe colonic fecal burden. No small bowel dilation visualized. ADRENALS: Normal. KIDNEYS AND URETER: Normal. BLADDER: Normal. REPRODUCTIVE ORGANS: Normal. LYMPH NODES:No lymphadenopathy. PERITONEUM: No ascites or free air. No other fluid collection. VESSELS: Scattered atherosclerotic calcifications are noted. RETROPERITONEUM: Normal. ABDOMINAL WALL: Normal. BONES: Scattered osseous degenerative changes are noted. IMPRESSION: Post surgical changes from bowel resection with a LLQ end colostomy. Moderate to severe colonic fecal burden. No small bowel dilation visualized.
[2025-01-19 13:17] LABS: CREATININE 0.87 MG/DL (0.60-1.10); TOTAL CARBON DIOXIDE 30.5 MMOL/L (24-32); eCRCL 87 ML/MIN; eGFR 90 ML/MIN
[2025-01-19 13:41] LABS: EOSINOPHILS % (MANUAL) 1.0 % (0-6); LYMPHOCYTES % (MANUAL) 17.0 % (21-51); MONOCYTES % (MANUAL) 5.0 % (2-12); NEUTROPHILS % (MANUAL) 77.0 % (42-75)
[2025-01-19 13:42] LABS: PLATELET ESTIMATE NORMAL
[2025-01-19 14:52] VITALS: PULSE 90; RESP 20; O2SAT 99
[2025-01-19 14:55] VITALS: BP 120/97
== END 2025-01-19 14:58 | disposition home or self-care (01) ==
LOC: ER 11:39
DX: K59.00 Constipation, unspecified (principal); Z93.3 Colostomy status
CPT/HCPCS: 36415; 74177; 80053; 83690; 85007; 85025; 99285; Q9967

== ENCOUNTER 2025-03-31 11:06 | Outpatient (CLI) | payer MEDICAID ==
[2025-03-31 11:38] LABS: MEAN PLATELET VOLUME 6.6 FL (7.4-10.4); RED CELL DISTRIBUTION WIDTH 13.1 % (11.5-14.5)
[2025-03-31 11:49] LABS: INR 1.0 INR
[2025-03-31 12:00] LABS: CHOL/HDL RATIO 3.4 (0.00-4.99); CREATININE 0.81 MG/DL (0.60-1.10); LDL CHOLESTEROL 124 MG/DL (50-100); TOTAL CARBON DIOXIDE 29.0 MMOL/L (24-32); eGFR > 90 ML/MIN
[2025-03-31 12:15] LABS: NEUTROPHILS % (MANUAL) 72.0 % (42-75); PLATELET ESTIMATE NORMAL
[2025-03-31 12:16] LABS: LYMPHOCYTES % (MANUAL) 19.0 % (21-51); MONOCYTES % (MANUAL) 9.0 % (2-12)
== END 2025-03-31 23:59 | disposition home or self-care (01) ==
LOC: RAD 11:06
PROVIDERS: ATTEND Physician Assistant Medical
DX: K59.09 Other constipation (principal); B35.9 Dermatophytosis, unspecified; R00.2 Palpitations; I10 Essential (primary) hypertension
CPT/HCPCS: 36415; 80053; 80061; 82306; 82607; 82746; 83036; 84153; 84154; 84439; 84443; 85007; 85025; 85610; 86803; 87522; 87902

== ENCOUNTER 2025-04-04 07:33 | Emergency (ER) | payer MEDICAID ==
[~2025-04-04] VITALS: Ht 185.4 cm; Wt 66.6 kg
[2025-04-04 07:47] VITALS: TEMP 97.8
[2025-04-04] MEDS ORDERED: iohexol 300mg/ml 100ml inj. ONE (08:49)
[2025-04-04 08:52] LABS: MEAN PLATELET VOLUME 6.6 FL (7.4-10.4); RED CELL DISTRIBUTION WIDTH 12.8 % (11.5-14.5)
[2025-04-04 09:01] LABS: CREATININE 0.86 MG/DL (0.60-1.10); TOTAL CARBON DIOXIDE 28.2 MMOL/L (24-32); eCRCL 87 ML/MIN; eGFR > 90 ML/MIN
[2025-04-04 09:22] LABS: BASOPHILS % (MANUAL) 1.0 % (0-1); EOSINOPHILS % (MANUAL) 2.0 % (0-6); LYMPHOCYTES % (MANUAL) 30.0 % (21-51); MONOCYTES % (MANUAL) 5.0 % (2-12); NEUTROPHILS % (MANUAL) 62.0 % (42-75); PLATELET ESTIMATE NORMAL
--- NOTE | 2025-04-04 09:53 | RADIOLOGY REPORT ---
Exam: CT CT ABDOMEN PELVIS W/ IV CONTRAST History: obstipation COMPARISON: CT CT ABDOMEN PELVIS W/ IV CONTRAST on DOS: 01/19/25, CT CT ABDOMEN PELVIS W/ IV CONTRAST on DOS: 11/30/24, CT CT ABDOMEN PELVIS on DOS: 11/05/24 Technique: Multidetector spiral CT of the abdomen and pelvis was performed from lung bases to pubic symphysis. Intravenous contrast was administered during this examination. Portal venous imaging was obtained. Axial, coronal and sagittal multiplanar reformats were performed by the technologist on a separate workstation. Radiation Dose : 1. Abdomen/Pelvis: CTDIvol 8.1 mGy, DLP 408.53 mGy*cm. Findings: Lung Bases: No acute or significant lung base finding. Normal heart size. No pleural or pericardial effusion. Liver: Stable 1.8 cm right hepatic lobe hemangioma. Liver is otherwise unremarkable. Gallbladder and Biliary Tree: Unremarkable Spleen: Unremarkable Pancreas: Unremarkable Adrenal Glands: Unremarkable Kidneys: Simple left renal cyst. No obstructive uropathy bilaterally. Bladder: Unremarkable Bowel: There are postsurgical changes of partial colectomy with a left lower quadrant colostomy. No bowel obstruction or other acute bowel abnormality. Large amount of stool throughout the colon in keeping with constipation No pneumoperitoneum. Ascites: Absent Lymphadenopathy: No mesenteric, retroperitoneal or periportal lymphadenopathy. Abdominal Wall and Mesentery: Unremarkable. Vasculature: The visualized abdominal aorta is normal in size and caliber. Abdominal and pelvic vessels demonstrate normal enhancement. Pelvic Organs: Normal prostate. Musculoskeletal: No aggressive focal bony lesions, acute fractures or dislocation. Multilevel degenerative changes throughout the spine IMPRESSION: No acute abdominal or pelvic finding. Postsurgical changes of partial colectomy with a left lower quadrant colostomy. Constipation Radiation optimization: All CT scans at this facility use at least one of these dose optimization techniques: automated exposure control mA and/or kV adjustment per patient size (includes targeted exams where dose is matched to clinical indication) or iterative reconstruction.
[2025-04-04 10:40] LABS: LEUKOCYTE ESTERASE ,URINE NEGATIVE (Neg); NITRITES, URINE NEGATIVE (Neg); OCCULT BLOOD,URINE NEGATIVE (Neg)
[2025-04-04 10:46] LABS: UA COLLECTION TYPE URINAL
[2025-04-04] MEDS: magnesium citrate 296ml oral solution PO ONE (10:58)
--- NOTE | 2025-04-04 11:03 | Physician Documentation ---
History of Present Illness ~ Chief Complaint: Constipation Stated Complaint: BOWEL OBSTRUCTION Time Seen by MD: 07:56 OK to notify your PCP?: Yes Primary Medical Doctor: avelina fuentes HPI 59 year old male with colostomy that has been nonproductive for 4 days. Has a history of constipation but no obstruction, episodes have resolved with stool softeners. Denies abdominal pain, vomiting, cough, fevers. Medication Reconciliation Allergies: Coded Allergies: No Known Allergies (Unverified , 04/04/25) Past Medical History Past Medical History: *CANCER* Past Surgical History: other Alcohol Use: None Drug Use: none Review of Systems All Other Systems at this time: Reviewed and Negative Physical Exam Vital Signs: RN Vital Signs have been reviewed: Yes, Temperature: 97.8, Source: Temporal, Heart Rate: 79, Respiratory Rate: 16, BP: 132/94, Pulse Oximetry: 100, Weight: 66.600 Oxygen Flow Rate: 0 Physical Exam Gen: no distress HEENT: PERRL, EOMI Pulm: no distress CV: deferred Abd: soft, NT, ND, ostomy site c/d/i MSK: no deformity Skin: w/d/i Neuro: nonfocal Psych: unremarkable Progress Results/Orders Results/Orders Orders - IRMA DAVIES MD Ct Abdomen Pelvis (04/04/25 09:32) Completed Orders - IRMA DAVIES MD Urinalysis, Cult If Indicated (04/04/25 07:49) Cbc/Diff (04/04/25 07:49) BMP (04/04/25 07:49) Lipase (04/04/25 07:49) CMP (04/04/25 07:49) Ct Abdomen Pelvis (04/04/25 09:32) Iohexol 300mg/Ml 100ml Inj. (Omnipaque-3 (04/04/25 08:49) Man Diff (04/04/25 08:30) Magnesium Citrate Oral Magalie. (Magnesium C (04/04/25 10:25) Vital Signs 04/04/25 04/04/25 07:47 09:31 Temp 97.8 Pulse 79 Resp 18 16 B/P (MAP) 132/94 Pulse Ox 100 O2 Flow Rate 0 Laboratory Tests Test 04/04/25 08:30 04/04/25 09:50 White Blood Count 2.1 L Red Blood Count 3.73 L Hemoglobin 12.9 L Hematocrit 37.0 L Mean Corpuscular Volume 99.2 H Mean Corpuscular Hemoglobin 34.7 H Mean Corpuscular Hemoglobin Concent 35.0 Red Cell Distribution Width 12.8 Platelet Count 242 Mean Platelet Volume 6.6 L Neutrophils (%) (Auto) 63.7 Lymphocytes (%) (Auto) 21.0 Monocytes (%) (Auto) 13.1 H Eosinophils (%) (Auto) 1.6 Basophils (%) (Auto) 0.6 Neutrophils # (Auto) 1.3 L Lymphocytes # (Auto) 0.4 L Monocytes # (Auto) 0.3 Eosinophils # (Auto) 0.0 Basophils # (Auto) 0.0 CBC Comment Differential Total Cells Counted 100 Neutrophils % (Manual) 62.0 Lymphocytes % (Manual) 30.0 Monocytes % (Manual) 5.0 Eosinophils % (Manual) 2.0 Basophils % (Manual) 1.0 Platelet Estimate Normal Red Blood Cell Morphology Perf Basophilic Stippling Macrocytosis 1+ Sodium Level 133 L Potassium Level 4.3 Chloride Level 97 L Carbon Dioxide Level 28.2 Anion Gap 8 Blood Urea Nitrogen 6 L Creatinine 0.86 Estimated GFR/1.73 m2 > 90 BUN/Creatinine Ratio 7.0 L Glucose Level 89 Calcium Level 8.9 Total Bilirubin 0.7 Aspartate Amino Transf (AST/SGOT) 15 Alanine Aminotransferase (ALT/SGPT) 11 L Alkaline Phosphatase 64 Total Protein 7.4 Albumin 4.0 Globulin 3.4 Albumin/Globulin Ratio 1.2 Lipase 15 L Chemistry Comments Urine Specimen Description Urinal Urine Color Yellow Urine Clarity Clear Urine pH 6.5 Urine Specific [place] <=1.005 Urine Protein Negative Urine Glucose (UA) Negative Urine Ketones Trace H Urine Occult Blood Negative Urine Nitrite Negative Urine Bilirubin Negative Urine Urobilinogen 0.2 Urine Leukocyte Esterase Negative Urine Culture Indicated Not ind Volume Urine Centrifuged 10 ml Urine Comment Medical Decision Making Additional information obtaine: N/A Findings 59 year old male with likely constipation. Workup unremarkable other than for constipation including CT scan interpreted by me which demonstrated constipation and no obstructive pattern. Rx mag citrate and return precautions. Diff Dx GI Bleed:Consideration: Include: Other Diff Dx Pain:Considerations: Include: Other Diff Dx N/V/D:Considerations: Include: Other Diff Dx Rectal:Considerations: Include: Other Departure Disposition: 01 HOME / SELF CARE / HOMELESS Impression: Primary Impression: Constipation Condition: Stable Discharge Instructions: Constipation, Adult Referrals: NO PRIMARY CARE PROVIDER (PCP) Education Educated: Patient Educated regarding: diagnosis, treatment, prognosis, need for follow up Signature Scribe Signature: . Attestation: . IRMA DAVIES MD Apr 04, 2025 11:02
[2025-04-04 12:15] VITALS: BP 149/98; PULSE 15; RESP 15; O2SAT 99
== END 2025-04-04 12:25 | disposition home or self-care (01) ==
LOC: ER 07:33
DX: K59.00 Constipation, unspecified (principal)
CPT/HCPCS: 74177; 80053; 81003; 83690; 85007; 85025; 99285; Q9967